=== PATIENT | male | born 1960 | race African-American/Black ===

== ENCOUNTER 2016-10-26 14:46 | Inpatient (IN) | payer BC, OTHER ==
[~2016-10-26] VITALS: Ht 190.5 cm; Wt 111.3 kg
--- NOTE | ~2016-10-26 | HC ---
[facility] [place] [address] CONSULTATION Name: MAITE JIANG Room #: 506-1 [facility] IN M.R.#: [id number] Admission: 10/26/16 Attend Phys: Alexei Saunders MD Discharge: 11/04/16 Date of : 56 Report #: [id number] THIS REPORT FOR: //name// CC: Alexei Coburn DATE OF SERVICE: 10/29/2016 NEUROBEHAVIORAL STATUS EXAM ATTENDING PHYSICIAN: Alexei Saunders M.D. ORE CRUSHER: Michael Sharif, PhD CLINICAL PRESENTATION: The patient is a 56-year-old -Croatian male admitted to the rehabilitation unit at [facility] for comprehensive inpatient rehabilitation program. He was initially admitted for acute medical treatment for respiratory arrest. The patient had acute respiratory failure that was complicated by 2 code blues on 10/18/2016, that required intubation. Acute renal insufficiency with acute tubular necrosis along with severe cardiomyopathy was diagnosed. The patient is severely hard of hearing. A previous stroke in 2007 is also reported. A complete description of his diagnoses on admission includes medical complexity with generalized debilitation, acute on chronic systolic heart failure, severe cardiomyopathy with an ejection fraction of 15% with global hypokinesis and dilated cardiomyopathy, acute respiratory failure, longstanding refractory hypertension, multiple premature ventricular contractions, acute renal insufficiency superimposed on chronic kidney disease, gastric ulcers per EGD, code blue times 2 and premorbid deafness. A complete description of his medical condition and history along with medications can be found in his medical record. Neuropsychological consultation was requested to provide assistance in the assessment of cognitive and emotional status and to provide recommendations and services. Prior to this most recent medical event, he was living with a female belt cleaner. He has three children. 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 He is a high school graduate with a 2-year degree at [employer], [place]. The patient does not have a prior history of treatment for depression or anxiety. TECHNIQUES UTILIZED: Clinical interview, review of medical records, staff consultation and behavioral observation, mini mental status exams/2 standard version (subtest), family interview with daughter and mother. EXAMINATION FINDINGS: The patient was alert and cooperative with the assessment. However, severe hearing deficits interfered with administration of [facility] [address] [place] [address] CONSULTATION Name: MAITE JIANG Room #: 506-1 [facility] IN [facility].#: [id number] Admission: 10/26/16 Attend Phys: Alexei Saunders MD Discharge: 11/04/16 Date of : 56 Report #: [id number] an assessment. His daughter did not indicate the patient's cognitive functioning to be different at this time then his premorbid level of ability. However, his mother does indicate that decreased comprehension appears noted. The patient denies subjective anxiety or depression. However, his self-disclosure of emotional state is somewhat inconsistent. He indicated increased feelings of anxiety and depression during the interview. However, with his daughter present denied symptoms of emotional distress. Appetite is reported as poor. He is lacking insight into cognitive deficits. His performance on mental status exam suggests impairment in immediate memory, high level thought organization, planning and problem solving. He was unable to copy a simple geometric design. The patient was able to draw a clock and place numbers within the clock, but unable to accurately set the time accurately. Decreased comprehension is suggested. Naming is within normal limits. He could read and follow a single command. DIAGNOSTIC IMPRESSION: Neurocognitive disorder, extent to be determined, without behavior disorder -- likely in the moderate range. Unspecified anxiety disorder. RECOMMENDATIONS: The patient may benefit from the use of an antidepressant medication. His appetite is described as less. Use of medication such as Remeron if medically appropriate, may help with stimulation of appetite and sleep. Encouragement to eat is likely necessary. He will require assistance in the management of medication and nutritional needs upon discharge. A followup neuropsychological assessment that is includes a hearing software packaging engineer will be necessary to clarify the severity of cognitive deficits. Thank you very much for allowing me to provide the consultation on this patient. <ELECTRONICALLY SIGNED> By: Michael Sharif, PhD 11/05/16 1530 1608 06 Michael Sharif, PhD /nt
--- NOTE | ~2016-10-26 | H ---
[facility] [place] [address] HISTORY AND PHYSICAL Name: MAITE JIANG Room #: 506-1 ADM IN M.R.#: [id number] Admission: 10/26/16 Attend Phys: Alexei Saunders MD Discharge: Date of : 56 Report #: [id number] THIS REPORT FOR: //name// CC: Alexei Coburn DATE OF SERVICE: 10/27/2016 HISTORY OF PRESENT ILLNESS: The patient is a 56-year-old male who originally admitted to [facility] with respiratory arrest. He was noted to have acute respiratory failure. His course was complicated by code blue x 2 on 10/18/2016 with intubation. He had cardiogenic shock, which improved. He had acute renal insufficiency with acute tubular necrosis. He has noted severe cardiomyopathy with severe global hypokinesis with dilated cardiomyopathy, ejection fraction of 15%. He was noted to have aspiration pneumonia post-code. He also was diagnosed with gastric ulcers with H. pylori positive per EGD 10/14/2016. He was noted to have significant generalized weakness and debilitation. I am uncertain if he sustained any type of hypoxic event or hypoxic encephalopathy post the code blues, but he would be further evaluated while on rehabilitation. He has been admitted for acute in-hospital inpatient rehabilitation. PAST MEDICAL HISTORY: Includes hypertension, hard of hearing/deaf (signs), stroke in 2007. MEDICATIONS: Please see the full medication listing. ALLERGIES: No known drug allergies. HABITS: No history of tobacco or alcohol abuse. SOCIAL HISTORY: Lives in a house with his who is apparently working premorbidly. Both the patient and spouse are noted to be deaf, although the patient is able to read lips quite well. Mother is involved who does hear. The patient premorbidly was independent without gait aids, independent with ADLs. They live in a house apparently a couple of steps with 12 steps down to the basement and laundry. REVIEW OF SYSTEMS: He did not offer any current complaints of chest pain, shortness of breath, abdominal discomfort. No focal extremity pain complaints. Did not complain of any headache, bowel or bladder changes. PHYSICAL EXAMINATION: GENERAL: He is a 56-year-old tall male, 6 feet 3 inches, no obvious distress. VITAL SIGNS: Last recorded temperature 98.5, pulse 84, respirations 20, blood [address] [address] HISTORY AND PHYSICAL Name: MAITE JIANG Room #: 506-1 [facility] IN .R.#: [id number] Admission: 10/26/16 Attend Phys: Alexei Saunders MD Discharge: Date of : 56 Report #: [id number] pressure 105/63. HEENT: Facies are symmetric. EOMs appeared to be intact. CHEST: Some mild decreased breath sounds. CARDIOVASCULAR: Sounded regular rate and rhythm. ABDOMEN: Somewhat obese, bowel sounds positive, nontender. GENITOURINARY AND RECTAL: Deferred. NEUROLOGIC: He has functional range of motion of both upper extremities with strength grade 4- to 3+/5. DTRs are trace to 1. In his lower extremities, there is no focal calf swelling, functional range of motion with strength a grade 3-3+/5. DTRs are trace to 1. He has been contact guard for basic sit to stand transfers and is starting to ambulate a short distance. ASSESSMENT: A 56-year-old male with the following problem list: 1. Medical complexity with generalized debilitation. 2. Acute on chronic systolic heart failure. 3. Severe cardiomyopathy with an ejection fraction of 15% with severe global hypokinesis, dilated cardiomyopathy. 4. Acute respiratory failure with healthcare-associated pneumonia. He is continuing on nasal prong O2, currently on 3 liters. 5. Longstanding refractory hypertension. 6. Multiple premature ventricular contractions. 7. Acute renal insufficiency superimposed on chronic kidney disease. Creatinine still elevated and is actually noted to be 4.0 today. 8. Gastric ulcers per EGD. Helicobacter pylori positive. 9. Code blue x 2 on 10/18/2016. 10. Premorbidly deaf. PLAN: The patient is admitted for acute in-hospital inpatient rehabilitation. Nephrology is involved noting that his creatinine is up again today. From a post-admission physician evaluation perspective, there are no relevant changes since the preadmission screening. Please see the above review of prior and current medical and functional conditions and comorbidities. Please see the patient's prior and current functional status. As far as risk of complications, he has multiple medical comorbidities as noted above. Initial plan of care involves the interdisciplinary acute inpatient rehabilitation program with the goal of maximizing his functional independence, so he can hopefully return back to his prior living situation. Prognosis is reasonably good with estimated length of stay probably fairly short overall, but he does have a number of significant medical comorbidities that are being monitored by the multiple performance test consultant physicians. Potential barriers would include the multiple medical comorbidities and decreased functional status. We will try to have speech therapy assess cognition as well as they can as well. The patient appears [facility] [address] [place] [address] HISTORY AND PHYSICAL Name: MAITE JIANG Room #: 506-1 ADM IN M.R.#: [id number] Admission: 10/26/16 Attend Phys: Alexei Saunders MD Discharge: Date of : 56 Report #: [id number] motivated and we will be working with him to maximize his functional independence in therapies. <ELECTRONICALLY SIGNED> By: Alexei Saunders MD 11/01/16 1518 1000 1042 Alexei Saunders MD /nt
--- NOTE | ~2016-10-26 | EKG ---
[address] [address] ELECTROCARDIOGRAM REPORT Name: ALYSSAMAITE BOOTHE Room #: 506-1 ADM IN M.R.#: [id number] Admission: 10/26/16 Attend Phys: Alexei Saunders MD Discharge: Date of : 56 Report #: [id number] THIS REPORT FOR: //name// [facility] Test Date: 2016-10-31 Test Time: 10:55:01 Pat Name: MAITE JIANG Department: Room: 506 Gender: M Coatings Inspector: Danielle DELATORRE : 1960 Requested By: Ravi Koch Order Number: [id number] MD: Satya Boyd Measurements Intervals [place] Rate: 77 P: 27 [place]: 162 QRS: -27 QRSD: 190 T: 50 QT: 483 QTc: 547 Interpretive Statements Sinus rhythm Ventricular bigeminy IVCD, consider atypical LBBB Compared to ECG 10/18/2016 08:25:23 Sinus tachycardia no longer present Atrial abnormality no longer present Electronically Signed On 10-31-2016 18:03:33 CDT by Satya Boyd [email or web address] <ELECTRONICALLY SIGNED> By: Satya Boyd MD 10/31/16 1803 1055 1055 Satya Boyd MD /EPI
--- NOTE | ~2016-10-26 | PLAN ---
[facility] [place] [address] REHAB UNIT PLAN OF CARE Name: MAITE JIANG Room #: 506-1 ADM IN M.R.#: [id number] Admission: 10/26/16 Attend Phys: Alexei Saunders MD Discharge: Date of : 56 Report #: [id number] THIS REPORT FOR: //name// CC: Alexei Coburn HISTORY: The patient's temperature today is 36.9, pulse 71, respirations 18 and blood pressure is 133/76. Transfers are standby assistance. Gait standby assistance to 110 feet with a front-wheeled walker. In occupational therapy, upper body dressing is supervision, with lower body min assist. In speech therapy, he has zlstmnqc-vq-ninfcb comprehensive deficits. He is on a mechanical soft with thin liquids. ASSESSMENT: 1. Medical complexity with generalized debilitation. 2. Kfndw-wo-kwdyjau systolic heart failure. 3. Severe cardiomyopathy with an ejection fraction of 15%, with severe global hypokinesis and dilated cardiomyopathy. 4. Acute respiratory failure with healthcare-associated pneumonia. He is on nasal prong O2, currently on 3 liters. 5. Long-standing refractory hypertension. 6. Multiple premature ventricular contractions. 7. Acute renal insufficiency superimposed on chronic kidney disease. 8. Gastric ulcers per EGD. Helicobacter pylori positive. 9. Code Blue times 2 on 10/18/2016. 10. Premorbid deafness or decreased hearing. PLAN: The overall plan of care is based on the preadmission screen, post-admission physician evaluation and information garnered from therapy assessments. 1. Estimated length of stay should be fairly short, probably 10 days to 2 weeks. 2. Medical prognosis is reasonably good. 3. Anticipated interventions includes the interdisciplinary acute inpatient rehabilitation program with PT, OT and speech working with him, rehab nursing assisting regarding medication management, skin care prophylaxis, bowel and bladder issues and nursing education. Case management is involved as well as the multiple loans consultant physicians. 4. Anticipated functional outcomes would be for the patient to become modified independent with transfers, mobility and ADLs and improvement in cognition so that he can return back to the home setting. 5. Discharge destination, he lives with his . 6. Expected therapy by discipline includes PT, OT and speech 1 hour per day [address] [address] REHAB UNIT PLAN OF CARE Name: MAITE JIANG Room #: 506-1 ADM IN [facility]#: [id number] Admission: 10/26/16 Attend Phys: Alexei Saunders MD Discharge: Date of : 56 Report #: [id number] each 5 days a week throughout the duration of the acute inpatient rehabilitation stay. <ELECTRONICALLY SIGNED> By: Alexei Saunders MD 11/01/16 1518 1109 1528 Alexei Saunders MD /nt
[~2016-10-26 14:46] MED LIST: ALLOPURINOL 30300 M2 PO; AMLODIPINE BESY10 MG PO; ASPIR 8181 MG PO; CARVEDILOL12.5 MG PO; COREG25 MG PO; COZAAR 50 MG TA50 M2 PO; DEMADEX10 MG PO; FISH OIL 1,0001 EAC5; LISINOPRIL40 MG PO
[2016-10-26] MEDS ORDERED: ALDACTONE25 MG PO (16:11)
[2016-10-26] MEDS ORDERED: ELIQUIS2.5 MG PO (16:11)
[2016-10-26] MEDS ORDERED: DEXTROSE 5025 GM/SYR IV PUSH (16:11)
[2016-10-26] MEDS ORDERED: DUONEB 2.5-0.5 M3 ML INH (16:11)
[2016-10-26] MEDS ORDERED: TYLENOL325 MG PO (16:11)
[2016-10-26] MEDS ORDERED: PACERONE 200 M200 M1 PO (16:11)
[2016-10-26] MEDS ORDERED: LIPITOR 20 MG T20 M1 PO (16:11)
[2016-10-26] MEDS ORDERED: GLUTOSE GEL 1515 G1 PO (16:11)
[2016-10-26] MEDS ORDERED: GLUCOSE4 GM PO (16:11)
[2016-10-26] MEDS ORDERED: FEVERALL650 MG RECTAL (16:11)
[2016-10-26 17:00] VITALS: BP 97/56
[2016-10-27 05:24] VITALS: BP 103/67
[2016-10-27 05:27] LABS: HEMATOCRIT 27.6 % (42.0-52.0); HEMOGLOBIN 9.3 gm/dL (14.0-18.0); MCH 28.3 pg (26.0-34.0); MCHC 33.8 g/dL (28.0-37.0); MCV 83.7 fL (80.0-100.0); RBC 3.3 mil/uL (4.50-6.00); RDW 15.4 % (10.5-14.5); WBC 18.9 thou/uL (4.0-11.0)
[2016-10-27 05:42] LABS: ALBUMIN 1.5 g/dL (3.4-5.0); CALCIUM 8.4 mg/dL (8.5-10.1); PHOSPHORUS 4.3 mg/dL (2.5-4.9); POTASSIUM 3.5 mmol/L (3.5-5.1)
[2016-10-27 08:00] VITALS: BP 104/71
[2016-10-27 14:45] VITALS: BP 104/71
[2016-10-27 17:23] LABS: URINE BILIRUBIN NEGATIVE (Negative); URINE BLOOD 2+ (Negative); URINE COLOR YELLOW; URINE GLUCOSE-RANDOM* NEGATIVE (Negative); URINE KETONES NEGATIVE (Negative); URINE NITRITE NEGATIVE (Negative); URINE PROTEIN (DIPSTICK) 1+ (Negative); URINE UROBILINOGEN 0.2 E.U./dl (0.2-1.0)
[2016-10-27 17:32] LABS: BACTERIA 1-9 Few /HPF (None Seen); CASTS None Seen /LPF (None Seen); CRYSTALS None Seen /LPF (None Seen); SQUAMOUS None Seen /LPF (0-3); URINE RBC 0-2 Rare /HPF (0-2); URINE WBC None Seen /HPF (0-5)
[2016-10-28 03:33] VITALS: BP 110/64
[2016-10-28 06:12] LABS: ALBUMIN 1.6 g/dL (3.4-5.0); CALCIUM 8.9 mg/dL (8.5-10.1); CREATININE 4.2 mg/dL (0.7-1.3); PHOSPHORUS 4.8 mg/dL (2.5-4.9); POTASSIUM 3.8 mmol/L (3.5-5.1)
[2016-10-28 08:00] VITALS: BP 109/63
[2016-10-28 15:35] VITALS: BP 100/61
[2016-10-28 20:45] VITALS: BP 106/69
[2016-10-29 04:56] VITALS: BP 111/74
[2016-10-29 04:58] LABS: ALBUMIN 1.6 g/dL (3.4-5.0); CALCIUM 8.8 mg/dL (8.5-10.1); CREATININE 4.4 mg/dL (0.7-1.3); PHOSPHORUS 4.9 mg/dL (2.5-4.9); POTASSIUM 3.9 mmol/L (3.5-5.1)
[2016-10-29 16:00] VITALS: BP 116/64
[2016-10-29 20:30] VITALS: BP 99/63
[2016-10-30 03:40] VITALS: BP 114/57
[2016-10-30 04:57] LABS: ALBUMIN 1.4 g/dL (3.4-5.0); CALCIUM 8.3 mg/dL (8.5-10.1); CREATININE 4.2 mg/dL (0.7-1.3); PHOSPHORUS 4.8 mg/dL (2.5-4.9); POTASSIUM 3.9 mmol/L (3.5-5.1)
[2016-10-30 07:52] VITALS: BP 108/61
[2016-10-30 16:28] VITALS: BP 113/77
[2016-10-30 17:10] VITALS: BP 113/83
[2016-10-30 21:02] VITALS: BP 123/81
[2016-10-31 04:47] VITALS: BP 120/58
[2016-10-31 06:14] LABS: ALBUMIN 1.4 g/dL (3.4-5.0); CALCIUM 8.3 mg/dL (8.5-10.1); CREATININE 4.3 mg/dL (0.7-1.3); PHOSPHORUS 4.8 mg/dL (2.5-4.9); POTASSIUM 3.9 mmol/L (3.5-5.1)
[2016-10-31 16:00] VITALS: BP 101/63
[2016-10-31 21:04] VITALS: BP 127/63
[2016-11-01 05:25] VITALS: BP 112/70
[2016-11-01 06:09] LABS: HEMATOCRIT 26.3 % (42.0-52.0); HEMOGLOBIN 8.8 gm/dL (14.0-18.0); MCH 28.1 pg (26.0-34.0); MCHC 33.6 g/dL (28.0-37.0); MCV 83.6 fL (80.0-100.0); PLATELET COUNT 361 thou/uL (150-400); RBC 3.15 mil/uL (4.50-6.00); RDW 15.7 % (10.5-14.5)
[2016-11-01 06:10] LABS: MANUAL DIFF YES
[2016-11-01 06:30] LABS: ALBUMIN 1.5 g/dL (3.4-5.0); CALCIUM 8.5 mg/dL (8.5-10.1); CREATININE 4.2 mg/dL (0.7-1.3); POTASSIUM 3.8 mmol/L (3.5-5.1); TOTAL BILIRUBIN 1.1 mg/dL (<0.1-1.0); TOTAL PROTEIN 6.9 g/dL (6.4-8.2)
[2016-11-01 07:33] LABS: ABSOLUTE NEUTROPHILS 7.9 thou/uL (1.4-8.2); ATYPICAL LYMPHS 1 %; TOTAL CELL COUNT 100
[2016-11-01 07:34] LABS: ANISOCYTOSIS 1+; POLYCHROMASIA OCCASIONAL
[2016-11-01 16:00] VITALS: BP 97/61
[2016-11-02 05:57] VITALS: BP 121/79
[2016-11-02 06:43] LABS: CALCIUM 8.3 mg/dL (8.5-10.1); CREATININE 4.3 mg/dL (0.7-1.3); POTASSIUM 3.7 mmol/L (3.5-5.1)
[2016-11-02 15:37] VITALS: BP 101/73
[2016-11-03 06:08] VITALS: BP 105/72
[2016-11-03 06:27] LABS: ALBUMIN 1.7 g/dL (3.4-5.0); CALCIUM 8.6 mg/dL (8.5-10.1); CREATININE 4.3 mg/dL (0.7-1.3); MAGNESIUM 1.7 mg/dL (1.8-2.4); PHOSPHORUS 4.6 mg/dL (2.5-4.9); POTASSIUM 4.1 mmol/L (3.5-5.1)
[2016-11-03 15:07] VITALS: BP 129/66
[2016-11-03 16:00] VITALS: BP 93/65
[2016-11-04 02:59] VITALS: BP 138/95
[2016-11-04 03:27] LABS: ABSOLUTE NEUTROPHILS 5.1 thou/uL (1.4-8.2); EOSINOPHILS 9.7 % (0.0-3.0); HEMATOCRIT 27.8 % (42.0-52.0); HEMOGLOBIN 9.6 gm/dL (14.0-18.0); LYMPHOCYTES 20.4 % (24.0-44.0); MCH 28.3 pg (26.0-34.0); MCHC 34.4 g/dL (28.0-37.0); MCV 82.1 fL (80.0-100.0); MONOCYTES 8.5 % (1.0-8.0); PLATELET COUNT 387 thou/uL (150-400); POLYS 60.4 % (36.0-66.0); RBC 3.39 mil/uL (4.50-6.00); RDW 15.8 % (10.5-14.5); WBC 8.5 thou/uL (4.0-11.0)
[2016-11-04 03:30] LABS: MANUAL DIFF NO
[2016-11-04 03:37] LABS: CALCIUM 8.6 mg/dL (8.5-10.1); CREATININE 4.1 mg/dL (0.7-1.3); PHOSPHORUS 4.6 mg/dL (2.5-4.9); POTASSIUM 3.7 mmol/L (3.5-5.1)
[2016-11-04 07:50] VITALS: BP 124/74
[2016-11-04] MEDS ORDERED: CORLANOR5 MG PO (08:58)
[2016-11-04] MEDS ORDERED: PANTOPRAZOLE SO40 M1 PO (08:59)
[2016-11-04 09:19] VITALS: BP 129/66
[2016-11-04 09:31] VITALS: BP 129/66
[2016-11-04 10:08] VITALS: BP 129/66
== END 2016-11-04 14:25 | disposition home health service (06) | DRG 91 ==
PROVIDERS: Hospitalist; Internal Medicine Nephrology; Nurse Practitioner; Physical Medicine & Rehabilitation; Specialist
DX: G93.1 Anoxic brain damage, not elsewhere classified (principal); I50.23 Acute on chronic systolic (congestive) heart failure; J96.00 Acute respiratory failure, unspecified whether with hypoxia or hypercapnia; N17.0 Acute kidney failure with tubular necrosis; R57.0 Cardiogenic shock; E43 Unspecified severe protein-calorie malnutrition; J15.1 Pneumonia due to Pseudomonas; I42.0 Dilated cardiomyopathy; I13.0 Hypertensive heart and chronic kidney disease with heart failure and stage 1 through stage 4 chronic kidney disease, or unspecified chronic kidney disease; I82.621 Acute embolism and thrombosis of deep veins of right upper extremity; R53.81 Other malaise; I49.3 Ventricular premature depolarization; N18.9 Chronic kidney disease, unspecified; K25.9 Gastric ulcer, unspecified as acute or chronic, without hemorrhage or perforation; E66.9 Obesity, unspecified; F32.9 Major depressive disorder, single episode, unspecified; I95.9 Hypotension, unspecified; E78.5 Hyperlipidemia, unspecified; I49.9 Cardiac arrhythmia, unspecified; D72.829 Elevated white blood cell count, unspecified; S30.1XXA Contusion of abdominal wall, initial encounter; X58.XXXA Exposure to other specified factors, initial encounter; Y93.89 Activity, other specified; Y92.89 Other specified places as the place of occurrence of the external cause; Z86.73 Personal history of transient ischemic attack (TIA), and cerebral infarction without residual deficits; Z68.30 Body mass index [BMI] 30.0-30.9, adult; Y99.8 Other external cause status; Z79.899 Other long term (current) drug therapy; Z82.49 Family history of ischemic heart disease and other diseases of the circulatory system
CPT/HCPCS: 10112

== ENCOUNTER 2017-01-15 01:28 | Inpatient (IN) | payer BC, OTHER ==
[~2017-01-15] VITALS: Ht 188 cm; Wt 91.5 kg
[2017-01-15] VITALS (68 sets, daily range): BP systolic 52–176; BP diastolic 40–123
--- NOTE | ~2017-01-15 | HC ---
[facility] [place] [address] CONSULTATION Name: MAITE JIANG Room #: 239-P ADM IN M.R.#: [id number] Admission: 01/15/17 Attend Phys: Austin Hadley DO Discharge: Date of : 56 Report #: [id number] THIS REPORT FOR: //name// CC: Austin Schreiber PULMONARY CONSULTATION REFERRAL PHYSICIAN: Dr. Hadley. REASON FOR REFERRAL: Acute respiratory failure. HISTORY OF PRESENT ILLNESS: The patient is a 56-year-old male who was brought to the Emergency Room being unresponsive. The patient was subsequently intubated. A pulmonary consultation was requested. The patient has known severe nonischemic cardiomyopathy. Previous echocardiogram showed ejection fraction of 15%. He has been followed by Cardiology. He was a cardiac arrest. According to the records, the patient was driven by private vehicle. When he arrived in the ER, the patient was found to be unresponsive. He was then taken to the ER, subsequently intubated. Portable chest x-ray following intubation revealed bilateral cardiogenic pulmonary edema. This morning, he is more awake. Chest x-ray showed improvement in pulmonary edema. PAST MEDICAL HISTORY: Notable for severe nonischemic cardiomyopathy, ejection fraction 15-20% on echocardiogram performed on 10/12/2016, cardiac catheterization performed on 10/31/2016 shows normal coronary arteries, hypertension, possible hypertensive cardiomyopathy, past history of CVA, history of medical noncompliance, gastric ulcers, DVT involving his right upper extremity, had been on Eliquis, hearing impairment. PAST SURGICAL HISTORY: As mentioned above. ALLERGIES: None to medications. MEDICATIONS: List reviewed. FAMILY HISTORY: Noncontributory. SOCIAL HISTORY: He is . He is deaf along with his . They have children, 1 child has no hearing impairment. He denies any tobacco or alcohol [facility] [address] [place] [address] CONSULTATION Name: MAITE JIANG Room #: 239-P [facility] IN ..#: [id number] Admission: 01/15/17 Attend Phys: Austin Hadley DO Discharge: Date of : 56 Report #: [id number]. REVIEW OF SYSTEMS: As mentioned above, otherwise is deferred as the patient is intubated. PHYSICAL EXAMINATION: GENERAL: He is presently alert, in no distress. VITAL SIGNS: Temperature is 98 degrees Fahrenheit, pulse is 70, respiratory rate is 14, blood pressure is 114/84 mmHg, saturation is 98%. HEENT: Normocephalic, atraumatic. NECK: Supple, without any lymphadenopathy or thyromegaly. CHEST: Breath sounds are fair. A few scattered crackles in the bases. No wheezes. CARDIOVASCULAR: Heart sounds are distant. No obvious murmurs or gallop. Pulses are 2+/4+ bilaterally. ABDOMEN: Soft, nontender, no organomegaly or masses felt. GENITOURINARY: Deferred. RECTAL: Deferred. EXTREMITIES: There is no edema, cyanosis or clubbing. LABORATORY DATA: Portable chest x-ray as mentioned above showing bilateral pulmonary edema. ET tube is approximately 2 cm above the rhonda. A followup chest x-ray shows improvement in pulmonary edema. Sodium 140, potassium 3.7, chloride 100, CO2 is 27, BUN is 25, creatinine is 2.3, glucose 206. Liver function profile is mildly elevated, alkaline phosphatase is 166. Troponin is 0.2. Arterial blood gas on admission revealed pH 7.14, PCO2 69, pO2 81 on FiO2 100%. Most recent arterial blood gas revealed pH 7.38, PCO2 64, pO2 169 on FiO2 of 80%. IMPRESSION: 1. Acute hypoxic hypercapneic respiratory failure in this 56-year-old white male with severe nonischemic cardiomyopathy. Chest x-ray shows dense bilateral pulmonary edema. 2. Acute on chronic systolic heart failure is suspected. Pneumonia is felt to be less likely. 3. Severe nonischemic cardiomyopathy with an estimated ejection fraction of 15-20%, cardiac catheterization performed in October 2016 shows normal coronary arteries. The patient is scheduled to have an implantable cardioverter-defibrillator implantation in the near future. 4. Acute kidney injury/chronic kidney disease. 5. Deep vein thrombosis involving his upper extremities, had been on anticoagulation. 6. Past history of cerebrovascular accident. 7. History of gastric ulcers. 8[place] [address] CONSULTATION Name: MAITE JIANG Room #: 239-P ADM IN M.R.#: [id number] Admission: 01/15/17 Attend Phys: Austin Hadley DO Discharge: Date of : 56 Report #: [id number] 9. History of medical noncompliance. 10. Hearing impairment. RECOMMENDATIONS: We will continue mechanical ventilation, continue diuresis as you are. We will consider weaning trials once clinically much improved. He will need to be followed closely regarding his renal function. Wean FiO2 for saturation 90%. Thank you for this consultation. <ELECTRONICALLY SIGNED> By: Grady Schreiber MD 01/16/17 1240 1338 2048 Grady Schreiber MD /nt
--- NOTE | ~2017-01-15 | EKG ---
[address] [employer] [address] ELECTROCARDIOGRAM REPORT Name: MAITE JIANG Amber Room #: 206-P ADM IN M.R.#: [id number] Admission: 01/15/17 Attend Phys: Austin Hadley DO Discharge: Date of : 56 Report #: [id number] THIS REPORT FOR: //name// [facility] Test Date: 2017-01-16 Test Time: 06:26:52 Pat Name: MAITE JIANG Department: Room: 206 Gender: M Instrument Technician: FARRUKH : 1960 Requested By: Satya Boyd Order Number: [id number] MD: Bernabe Solares Measurements Intervals [place] Rate: 75 P: 10 [place]: 177 QRS: -21 QRSD: 197 T: 141 QT: 509 QTc: 569 Interpretive Statements Sinus rhythm Ventricular premature complex Left bundle branch block Compared to ECG 10/31/2016 10:55:01 Tachycardias is no longer present Electronically Signed On 01-17-2017 12:59:09 CDT by Bernabe Solares [email or web address] <ELECTRONICALLY SIGNED> By: eBrnabe Solares MD, [facility] 01/17/17 1259 5 5 Bernabe Solares MD, [facility] /EPI
--- NOTE | ~2017-01-15 | HC ---
[facility] [place] [address] CONSULTATION Name: MAITE JIANG Amber Room #: 206-P ADM IN M.R.#: [id number] Admission: 01/15/17 Attend Phys: Austin Hadley DO Discharge: Date of : 56 Report #: [id number] THIS REPORT FOR: //name// CC: Austin Schreiber DATE OF SERVICE: 01/16/2017 NEPHROLOGY CONSULTATION REASON FOR CONSULTATION: Chronic kidney disease and electrolyte abnormalities. HISTORY OF PRESENT ILLNESS: This is a 56-year-old male who has severe chronic cardiomyopathy. He also has longstanding hypertension. He has been known for years to have some chronic kidney disease that started about stage III and now is running more in the stage IV range. He has actually been followed intermittently over the years by couple of members of our group in the office. Most recently, he was in [facility] in September and October of 2016. He had problems with heart failure at that time. He also had a couple of arrests. He developed cardiogenic shock. We saw him at that time with acute kidney injury on top of his chronic kidney disease. Most of that was cardiorenal type syndrome. His admitting creatinine at that time was 1.8, it stay between that in the middle 2 range for much of this hospitalization, but with further diuresis bonnie to 4.1 by the time of discharge. He has actually been seen back in the office on 12/06/[address] Taylor. At that time, his creatinine level was 2.3, which was good for him. He is maintained on chronic diuretics. Most recently, this has been torsemide at home. He presented to the Emergency Room after having a single episode. That actually occurred while he was coming in to the hospital in a private car. That was necessitated because he was having worsening dyspnea at home. He was intubated in the Emergency Room. He was extubated earlier this afternoon. His creatinine level was 2.3 on presentation and 2.3 again today. He has undergone some diuresis of 3.1 liters recorded over the past 24 hours. He has also developed some hypokalemia with the potassium level down to ____. <ELECTRONICALLY SIGNED> By: Ravi Taylor MD 01/18/17 1127 1739 2333 Mac Gutierrez MD /nt
--- NOTE | ~2017-01-15 | HC ---
[facility] [place] [address] CONSULTATION Name: MAITE JIANG Amber Room #: 206-P [facility] IN M.R.#: [id number] Admission: 01/15/17 Attend Phys: Austin Hadley DO Discharge: Date of : 56 Report #: [id number] THIS REPORT FOR: //name// CC: Austin Schreiber REASON FOR CONSULTATION: Acute on chronic LV systolic heart failure. HISTORY OF PRESENT ILLNESS: The patient is a 56-year-old male with history of a nonischemic cardiomyopathy who follows with Dr. Koch. He was hospitalized in September with congestive heart failure, respiratory failure requiring intubation. At that time, a heart catheterization showed normal coronary arteries with a cath performed on October 31. He also had an echo on 10/12/2016 demonstrating an EF of 15-20%. Last night the patient presented to the ER with progressive worsening, exertional dyspnea and was intubated in the Emergency Room. In the ICU overnight he was started on IV diuretics and had some periods of hypotension requiring Levophed but this is currently off. The patient is currently intubated, but alert and following commands. REVIEW OF SYSTEMS: Unable to obtain due to patient being intubated. PAST MEDICAL HISTORY: 1. Nonischemic cardiomyopathy, EF of 15-20% based on echo on 10/12/2016. 2. Cardiac catheterization, 10/31/2016 demonstrate normal course. 3. Hypertension. 4. Possible hypertensive cardiomyopathy. 5. Prior cerebrovascular accident. 6. Noncompliance. 7. Gastric ulcers during the last hospitalization status post EGD. 8. Right upper extremity DVT diagnosed during last hospitalization that progressed all the way to the subclavian vein, discharged on Eliquis therapy. 9. The patient's hearing is impaired. SOCIAL HISTORY: No tobacco. FAMILY HISTORY: Negative for coronary artery disease. ALLERGIES: None. MEDICATIONS: Reviewed. PHYSICAL EXAMINATION: VITAL SIGNS: Afebrile, pulse 70, respiration 14, blood pressure 114/84, sats 98%. GENERAL: The patient is intubated and eyes are open and he tracks. [facility] [address] [place] [address] CONSULTATION Name: MAITE JIANG Room #: 206-P [facility] IN .R.#: [id number] Admission: 01/15/17 Attend Phys: Austin Hadley DO Discharge: Date of : 56 Report #: [id number] HEENT: Oropharynx is intubated. Sclerae are anicteric. NECK: Supple, with no thyromegaly. HEART: Regular rate and rhythm. There is elevated JVP. LUNGS: With some coarse crackles at the bases. ABDOMEN: Soft, nontender, nondistended with no hepatosplenomegaly. EXTREMITIES: There is no clubbing, cyanosis, edema. His extremities are cool to touch. His pulses are 1+ throughout. NEUROLOGIC: The patient is tracking and following commands. LABORATORY DATA: Troponin is 0.21, pH is 7.3, pCO2 of 46, pO2 169. White count 17.9, hemoglobin 13, platelets 175. INR is 1.1, sodium 140, potassium 3.7, chloride 100, bicarbonate 27, BUN 25, creatinine 2.3. Lactic acid 8.6. AST 32, ALT 28, alkaline phosphatase 166, proBNP 4555, albumin 3.4, serum alcohol level is normal. EKG shows sinus rhythm with a left bundle branch block. His chest x-ray shows evidence of pulmonary edema. His telemetry shows sinus rhythm and sinus tachycardia. There are no arrhythmias noted. ASSESSMENT: 1. Acute on chronic left ventricular systolic heart failure. 2. Nonischemic cardiomyopathy. 3. Hypertension. 4. Medical noncompliance. 5. Acute respiratory failure. 6. Elevated troponin. 7. Acute on chronic renal insufficiency. 8. Leukocytosis. 9. Prior deep venous thrombosis. 10. Gastric ulcers. 11. Prior cerebrovascular accident. 12. Hearing impaired. In summary, the patient is a 56-year-old with a history of a nonischemic cardiomyopathy who presents with acute on chronic left ventricular systolic heart failure requiring intubation. I recommend that we continue with diuretics. I will give him Lasix 120 x 1 now as he has not made much in the ER in overnight. We will hold any antihypertensives currently as he has had some low blood pressures overnight. Hopefully, we can diurese the patient sufficiently to allow for extubation. In terms of his elevated troponins, there is no evidence of ischemia on his EKG and I think this is likely due to his congestive heart failure and renal insufficiency. We will continue to follow. <ELECTRONICALLY SIGNED> By: Satya Boyd MD 01/19/17 1105 [id number] Satya Boyd MD /nt
--- NOTE | ~2017-01-15 | EKG ---
[address] [place] [address] ELECTROCARDIOGRAM REPORT Name: MAITE JIANG Amber Room #: 206-P ADM IN M.R.#: [id number] Admission: 01/15/17 Attend Phys: Austin Hadley DO Discharge: Date of : 56 Report #: [id number] THIS REPORT FOR: //name// [facility] ED Test Date: 2017-01-15 Test Time: 01:26:45 Pat Name: MAITE JIANG Department: Room: 206 Gender: M Advertising Manager: MIGUEL ÁNGEL : 1960 Requested By: Omega Blanco Order Number: [id number] MD: Bernabe Solares Measurements Intervals [place] Rate: 100 P: [place]: QRS: -21 QRSD: 235 T: 112 QT: 473 QTc: 611 Interpretive Statements Wide complex tachycardia, possibly ventricular tachycardia Left bundle branch block morphology Compared to ECG 10/31/2016 10:55:01 Wide complex tachycardia is now present Electronically Signed On 01-17-2017 12:41:47 CDT by Bernabe Solares [email or web address] <ELECTRONICALLY SIGNED> By: Bernabe Solares MD, [facility] 01/17/17 1241 0126 012 Bernabe Solares MD, [facility] /EPI
[~2017-01-15 01:28] MED LIST changes: +ALDACTONE25 MG PO; +CORLANOR5 MG PO; +DEXTROSE 5025 GM/SYR IV PUSH; +DUONEB 2.5-0.5 M3 ML INH; +ELIQUIS2.5 MG PO; +FEVERALL650 MG RECTAL; +GLUCOSE4 GM PO; +GLUTOSE GEL 1515 G1 PO; +LIPITOR 20 MG T20 M1 PO; +PACERONE 200 M200 M1 PO; +PANTOPRAZOLE SO40 M1 PO; +TYLENOL325 MG PO
[2017-01-15 02:13] LABS: HEMATOCRIT 41.1 % (42.0-52.0); MCH 27.4 pg (26.0-34.0); MCHC 31.7 g/dL (28.0-37.0); MCV 86.5 fL (80.0-100.0); PLATELET COUNT 175 thou/uL (150-400); RBC 4.75 mil/uL (4.50-6.00); RDW 16.8 % (10.5-14.5); WBC 17.9 thou/uL (4.0-11.0)
[2017-01-15 02:14] LABS: MANUAL DIFF YES
[2017-01-15 02:16] LABS: APTT 28.4 Seconds (24.5-32.8); INR 1.1
[2017-01-15 02:20] LABS: ANION GAP 13 mmol/L (7-16); BUN 25 mg/dL (7-18); CALCIUM 9.6 mg/dL (8.5-10.1); CHLORIDE 100 mmol/L (98-107); CO2 27 mmol/L (21-32); CREATININE 2.3 mg/dL (0.7-1.3); GLUCOSE 206 mg/dL (74-106); POTASSIUM 3.7 mmol/L (3.5-5.1); SODIUM 140 mmol/L (136-145)
[2017-01-15 02:29] LABS: ACETAMINOPHEN < 2 ug/mL (10-30); ALBUMIN 3.4 g/dL (3.4-5.0); ALKALINE PHOSPHATASE 166 U/L (46-116); SALICYLATE < 2.8 mg/dL (2.8-20.0); SGOT 32 U/L (15-37); SGPT 28 U/L (30-65); TOTAL BILIRUBIN 0.9 mg/dL (<0.1-1.0); TROPONIN-I 0.05 ng/mL (<0.04-0.07)
[2017-01-15 02:32] LABS: ANISOCYTOSIS 1+; LARGE PLATELETS OCCASIONAL; TOTAL CELL COUNT 100
[2017-01-15 02:33] LABS: MICROCYTES 1+
[2017-01-15 02:39] LABS: ABG SAMPLE TYPE ARTERIAL; BE(vivo) -6.6 mmol/L (-2 to +3); HCO3 23.6 mmol/L (22.0-26.0); LACTATE 2.75 mmol/L (0.5-2.0); O2(CT) 18.3 mL/dL (15.0-23.0); O2Hb 91.2 % (92.0-98.0); PO2 81.1 mmHg (80.0-100.0); tCO2 25.7 mmol/L (24.0-30.0)
[2017-01-15 02:40] LABS: PCO2 69.5 mmHg (35.0-45.0); STICK SITE L.RADIAL; TIDAL VOLUME 500 ml; pH 7.149 (7.360-7.450)
[2017-01-15 05:35] LABS: ABG SAMPLE TYPE ARTERIAL; BE(vivo) -0.6 mmol/L (-2 to +3); HCO3 26.4 mmol/L (22.0-26.0); LACTATE 1.74 mmol/L (0.5-2.0); O2(CT) 18.8 mL/dL (15.0-23.0); O2Hb 97.9 % (92.0-98.0); PCO2 53.7 mmHg (35.0-45.0); PO2 146.2 mmHg (80.0-100.0); STICK SITE L.RADIAL; TIDAL VOLUME 600 ml; sO2 98.6 % (92.0-98.0); tCO2 28.1 mmol/L (24.0-30.0)
[2017-01-15 07:59] LABS: ABG SAMPLE TYPE ARTERIAL; BE(vivo) 1.9 mmol/L (-2 to +3); HCO3 27.4 mmol/L (22.0-26.0); LACTATE 1.34 mmol/L (0.5-2.0); O2(CT) 18.8 mL/dL (15.0-23.0); O2Hb 98.2 % (92.0-98.0); PCO2 46.7 mmHg (35.0-45.0); PO2 169.7 mmHg (80.0-100.0); STICK SITE L.RADIAL; TIDAL VOLUME 600 ml; pH 7.387 (7.360-7.450); sO2 99.1 % (92.0-98.0); tCO2 28.9 mmol/L (24.0-30.0)
[2017-01-16] VITALS (36 sets, daily range): BP systolic 104–149; BP diastolic 68–102
[2017-01-16 04:59] LABS: HEMATOCRIT 35.6 % (42.0-52.0); HEMOGLOBIN 11.8 gm/dL (14.0-18.0); MCH 27.2 pg (26.0-34.0); MCV 82.4 fL (80.0-100.0); RBC 4.32 mil/uL (4.50-6.00); RDW 16.8 % (10.5-14.5); WBC 6.7 thou/uL (4.0-11.0)
[2017-01-16 05:26] LABS: CALCIUM 8.8 mg/dL (8.5-10.1); CREATININE 2.3 mg/dL (0.7-1.3)
[2017-01-16 05:29] LABS: POTASSIUM 2.6 mmol/L (3.5-5.1)
[2017-01-16 09:37] LABS: ABG SAMPLE TYPE ARTERIAL; HCO3 27.8 mmol/L (22.0-26.0); O2(CT) 18.3 mL/dL (15.0-23.0); O2Hb 98.1 % (92.0-98.0); PCO2 43.5 mmHg (35.0-45.0); PO2 153.7 mmHg (80.0-100.0); STICK SITE L.RADIAL; pH 7.424 (7.360-7.450); tCO2 29.2 mmol/L (24.0-30.0)
[2017-01-16 09:38] LABS: Pressure Support 6 cm H20
[2017-01-16 12:26] LABS: MAGNESIUM 1.6 mg/dL (1.8-2.4); POTASSIUM 3.1 mmol/L (3.5-5.1)
[2017-01-17] VITALS (16 sets, daily range): BP systolic 82–130; BP diastolic 57–98
[2017-01-17 03:55] LABS: HEMATOCRIT 31.8 % (42.0-52.0); HEMOGLOBIN 10.6 gm/dL (14.0-18.0); MCH 27.9 pg (26.0-34.0); MCHC 33.5 g/dL (28.0-37.0); MCV 83.5 fL (80.0-100.0); RBC 3.81 mil/uL (4.50-6.00); RDW 16.9 % (10.5-14.5); WBC 5.3 thou/uL (4.0-11.0)
[2017-01-17 04:29] LABS: CALCIUM 8.7 mg/dL (8.5-10.1); CREATININE 2.4 mg/dL (0.7-1.3); POTASSIUM 3.9 mmol/L (3.5-5.1)
[2017-01-18 04:18] VITALS: BP 111/77
[2017-01-18 07:25] VITALS: BP 121/86
[2017-01-18 07:51] VITALS: BP 121/84
[2017-01-18 08:30] LABS: CALCIUM 9.8 mg/dL (8.5-10.1); CREATININE 2.2 mg/dL (0.7-1.3); POTASSIUM 3.5 mmol/L (3.5-5.1)
[2017-01-18 11:39] VITALS: BP 119/92
[2017-01-18 15:35] VITALS: BP 119/86
[2017-01-18 19:14] VITALS: BP 105/68
[2017-01-19 02:42] VITALS: BP 113/79
[2017-01-19 02:50] LABS: HEMATOCRIT 32.5 % (42.0-52.0); HEMOGLOBIN 10.6 gm/dL (14.0-18.0); MCH 27.3 pg (26.0-34.0); MCHC 32.6 g/dL (28.0-37.0); MCV 83.6 fL (80.0-100.0); RBC 3.88 mil/uL (4.50-6.00); RDW 16.5 % (10.5-14.5); WBC 4.9 thou/uL (4.0-11.0)
[2017-01-19 03:03] LABS: ALBUMIN 2.8 g/dL (3.4-5.0); CALCIUM 9.5 mg/dL (8.5-10.1); CREATININE 2.1 mg/dL (0.7-1.3); PHOSPHORUS 3.9 mg/dL (2.5-4.9); POTASSIUM 3.3 mmol/L (3.5-5.1)
[2017-01-19 08:02] VITALS: BP 132/95
[2017-01-19 15:16] VITALS: BP 134/98
[2017-01-19 19:21] VITALS: BP 114/69
[2017-01-19 23:43] VITALS: BP 138/95
[2017-01-20 03:55] VITALS: BP 131/78
[2017-01-20 04:24] LABS: ABSOLUTE NEUTROPHILS 2.2 thou/uL (1.4-8.2); BASOPHILS 1.3 % (0.0-2.0); EOSINOPHILS 7.1 % (0.0-3.0); HEMATOCRIT 31.6 % (42.0-52.0); HEMOGLOBIN 10.7 gm/dL (14.0-18.0); LYMPHOCYTES 34.6 % (24.0-44.0); MCHC 33.9 g/dL (28.0-37.0); MCV 82.6 fL (80.0-100.0); MONOCYTES 10.1 % (1.0-8.0); PLATELET COUNT 122 thou/uL (150-400); POLYS 46.9 % (36.0-66.0); RBC 3.83 mil/uL (4.50-6.00); RDW 16.5 % (10.5-14.5); WBC 4.7 thou/uL (4.0-11.0)
[2017-01-20 04:29] LABS: ALBUMIN 2.6 g/dL (3.4-5.0); CALCIUM 9.1 mg/dL (8.5-10.1); CREATININE 2.5 mg/dL (0.7-1.3); MANUAL DIFF NO; PHOSPHORUS 4.4 mg/dL (2.5-4.9); POTASSIUM 3.6 mmol/L (3.5-5.1)
[2017-01-20 07:40] VITALS: BP 136/88
[2017-01-20 09:01] VITALS: BP 136/88
[2017-01-20] MEDS ORDERED: CARVEDILOL6.25 MG PO (10:32)
[2017-01-20] MEDS ORDERED: ACCUPRIL40 MG PO (10:32)
[2017-01-20 11:30] VITALS: BP 136/88
== END 2017-01-20 13:07 | disposition home or self-care (01) | DRG 853 ==
LOC: ER 01:28 → EDBD 02:24 → ICU 02:24 → EROBS 02:24 → ICU 04:18 → 2N 01-17 11:41 → ENTRNSPT 01-20 12:52 → EDTRNSPTSTS 01-20 12:57 → 2N 01-20 13:07
PROVIDERS: Emergency Medicine; Family Medicine; Internal Medicine Nephrology; Internal Medicine Pulmonary Disease; Nurse Practitioner Acute Care; Nurse Practitioner Adult Health
PROC: 5A1945Z Respiratory Ventilation, 24-96 Consecutive Hours (ICD-10-PCS; principal; 2017-01-15)
PROC: 0BH17EZ Insertion of Endotracheal Airway into Trachea, Via Natural or Artificial Opening (ICD-10-PCS; principal; 2017-01-15)
PROC: 02HK3KZ Insertion of Defibrillator Lead into Right Ventricle, Percutaneous Approach (ICD-10-PCS; 2017-01-19)
PROC: 0JH609Z Insertion of Cardiac Resynchronization Defibrillator Pulse Generator into Chest Subcutaneous Tissue and Fascia, Open Approach (ICD-10-PCS; 2017-01-19)
PROC: 02H63KZ Insertion of Defibrillator Lead into Right Atrium, Percutaneous Approach (ICD-10-PCS; 2017-01-19)
PROC: 02HL3KZ Insertion of Defibrillator Lead into Left Ventricle, Percutaneous Approach (ICD-10-PCS; 2017-01-19)
DX: A41.9 Sepsis, unspecified organism (principal); J96.01 Acute respiratory failure with hypoxia; J96.02 Acute respiratory failure with hypercapnia; I50.23 Acute on chronic systolic (congestive) heart failure; N17.9 Acute kidney failure, unspecified; I13.0 Hypertensive heart and chronic kidney disease with heart failure and stage 1 through stage 4 chronic kidney disease, or unspecified chronic kidney disease; E87.0 Hyperosmolality and hypernatremia; I42.8 Other cardiomyopathies; N18.9 Chronic kidney disease, unspecified; M10.9 Gout, unspecified; E11.22 Type 2 diabetes mellitus with diabetic chronic kidney disease; H91.90 Unspecified hearing loss, unspecified ear; K25.9 Gastric ulcer, unspecified as acute or chronic, without hemorrhage or perforation; N18.3 Chronic kidney disease, stage 3 (moderate); E87.6 Hypokalemia; Z86.73 Personal history of transient ischemic attack (TIA), and cerebral infarction without residual deficits; Z79.899 Other long term (current) drug therapy; Z91.14 Patient's other noncompliance with medication regimen; Z79.01 Long term (current) use of anticoagulants
CPT/HCPCS: 10078; 10081; 62110; 62900; 70005

== ENCOUNTER → 2017-02-03 | Outpatient (CLI) | payer BC, OTHER ==
[~2017-02-03] MED LIST changes: +ACCUPRIL40 MG PO; +CARVEDILOL6.25 MG PO
== END ==
LOC: RAD 08:14
DX: J96.00 Acute respiratory failure, unspecified whether with hypoxia or hypercapnia (principal)

== ENCOUNTER 2017-06-27 11:28 | Inpatient (IN) | payer BC, OTHER ==
[~2017-06-27] VITALS: Ht 190.5 cm; Wt 96.7 kg
--- NOTE | ~2017-06-27 | EKG ---
[address] [address] ELECTROCARDIOGRAM REPORT Name: APOLINARMAITE Room #: 211-P [facility].#: [id number] Admission: 06/27/17 Attend Phys: Satya Boyd MD Discharge: Date of : 56 Report #: [id number] THIS REPORT FOR: //name// [facility] Test Date: 2017-06-27 Test Time: 13:17:21 Pat Name: MAITE JIANG Department: Room: 211 P Gender: M Absorption And Adsorption Engineer: YONY : 1960 Requested By: Satya Boyd Order Number: [id number] MD: Bernabe Solares Measurements Intervals [place] Rate: 71 P: 27 ID: 157 QRS: -40 QRSD: 134 T: 115 QT: 440 QTc: 479 Interpretive Statements Atrial-sensed ventricular-paced rhythm No further analysis attempted due to paced rhythm Compared to ECG 03/02/2017 17:49:18 Atrial fibrillation is no longer present biventricular pacing is now noted Electronically Signed On 06-28-2017 8:59:38 HUMAN RESOURCES EXECUTIVE by Bernabe Solares [email or web address] <ELECTRONICALLY SIGNED> By: Bernabe Solares MD, [facility] 06/28/17 0859 1317 1317 Bernabe Solares MD, [facility] /EPI
--- NOTE | ~2017-06-27 | EKG ---
[address] [address] ELECTROCARDIOGRAM REPORT Name: MAITE JIANG Amber Room #: 211-P [facility].#: [id number] Admission: 06/27/17 Attend Phys: Satya Boyd MD Discharge: Date of : 56 Report #: [id number] THIS REPORT FOR: //name// [facility] Test Date: 2017-06-27 Test Time: 11:58:34 Pat Name: MAITE JIANG Department: Room: 211 P Gender: M Examiner Rating Clerk: YONY : 1960 Requested By: Satya Boyd Order Number: [id number] MD: Bernabe Solares Measurements Intervals [place] Rate: 154 P: 132 [place]: 100 QRS: -38 QRSD: 180 T: 155 QT: 333 QTc: 533 Interpretive Statements Atrial fibrillation with a rapid ventricular response Left bundle branch block Compared to ECG 03/02/2017 17:49:18 Wide complex tachycardia is now present Electronically Signed On 06-28-2017 8:58:54 TECHNICAL INSTRUCTOR COURSE DEVELOPER by Bernabe Solares [email or web address] <ELECTRONICALLY SIGNED> By: Bernabe Solares MD, [facility] 06/28/17 0858 1158 1158 Bernabe Solares MD, [facility] /EPI
--- NOTE | ~2017-06-27 | EKG ---
[address] [address] ELECTROCARDIOGRAM REPORT Name: MAITE JIANG Room #: 211-P [facility].#: [id number] Admission: 06/27/17 Attend Phys: Satya Boyd MD Discharge: Date of : 56 Report #: [id number] THIS REPORT FOR: //name// [facility] Test Date: 2017-06-28 Test Time: 11:42:10 Pat Name: MAITE JIANG Department: Room: 211 P Gender: M Transformer Repairer: chantell : 1960 Requested By: Satya Boyd Order Number: [id number] MD: Bernabe Solares Measurements Intervals [place] Rate: 61 P: ND: 48 QRS: -63 QRSD: 186 T: 33 QT: 570 QTc: 575 Interpretive Statements Atrial-ventricular dual-paced rhythm No further analysis attempted due to paced rhythm Compared to ECG 06/27/2017 13:17:21 No significant change was found Electronically Signed On 06-28-2017 17:17:38 JAVA J2EE TECHNICAL LEAD by Bernabe Solares [email or web address] <ELECTRONICALLY SIGNED> By: Bernabe Solares MD, [facility] 06/28/17 1717 1142 1142 Bernabe Solares MD, [facility] /EPI
[~2017-06-27 11:28] MED LIST changes: +CARVEDILOL3.125 MG PO
[2017-06-27 11:50] VITALS: BP 126/84
[2017-06-27] MEDS ORDERED: COREG25 MG PO (12:08)
[2017-06-27] MEDS ORDERED: PROTONIX40 M1 PO (12:10)
[2017-06-27 12:12] LABS: HEMATOCRIT 40.7 % (42.0-52.0); HEMOGLOBIN 13.7 gm/dL (14.0-18.0); MCH 28.6 pg (26.0-34.0); MCHC 33.6 g/dL (28.0-37.0); MCV 85.4 fL (80.0-100.0); RBC 4.77 mil/uL (4.50-6.00); RDW 14.6 % (10.5-14.5); WBC 6.4 thou/uL (4.0-11.0)
[2017-06-27] MEDS ORDERED: DEMADEX20 MG PO (12:12)
[2017-06-27] MEDS ORDERED: COZAAR 25 MG TA25 M1 PO (12:13)
[2017-06-27 12:27] LABS: ALBUMIN 3.7 g/dL (3.4-5.0); CALCIUM 9.1 mg/dL (8.5-10.1); CREATININE 2.3 mg/dL (0.7-1.3); POTASSIUM 3.3 mmol/L (3.5-5.1); TOTAL BILIRUBIN 1.5 mg/dL (<0.1-1.0); TOTAL PROTEIN 7.7 g/dL (6.4-8.2)
[2017-06-27 15:40] VITALS: BP 158/105
[2017-06-27 19:47] VITALS: BP 148/98
[2017-06-27 23:55] VITALS: BP 134/83
[2017-06-28 03:39] LABS: CALCIUM 8.6 mg/dL (8.5-10.1); CREATININE 2.4 mg/dL (0.7-1.3); POTASSIUM 3.5 mmol/L (3.5-5.1)
[2017-06-28 03:45] LABS: ALBUMIN 3.2 g/dL (3.4-5.0); DIRECT BILIRUBIN 0.2 mg/dL (<0.1-0.3); TOTAL BILIRUBIN 1.3 mg/dL (<0.1-1.0); TOTAL PROTEIN 6.6 g/dL (6.4-8.2)
[2017-06-28 03:46] LABS: % SATURATION 18 % (20-39); IRON 34 ug/dL (65-175); TIBC 189 ug/dL (250-450)
[2017-06-28 04:13] VITALS: BP 128/95
[2017-06-28 07:16] VITALS: BP 158/110
[2017-06-28 11:12] VITALS: BP 143/98
[2017-06-28 12:13] LABS: IgG 1514 mg/dL (700-1600)
[2017-06-28 15:37] VITALS: BP 164/113
[2017-06-28 18:11] LABS: HAV IgM AB (ANTI-HAV IgM) Negative (Negative); HEPATITIS B SURFACE AG Negative (Negative); HEPATITIS C VIRUS AB <0.1 (0.0-0.9)
[2017-06-28 20:27] VITALS: BP 167/121
[2017-06-28 23:58] VITALS: BP 158/115
[2017-06-29 04:12] LABS: HEMOGLOBIN 12.3 gm/dL (14.0-18.0); MCH 28.8 pg (26.0-34.0); MCHC 34.2 g/dL (28.0-37.0); MCV 84.2 fL (80.0-100.0); PLATELET COUNT 121 thou/uL (150-400); RBC 4.27 mil/uL (4.50-6.00); RDW 14.5 % (10.5-14.5); WBC 5.2 thou/uL (4.0-11.0)
[2017-06-29 04:18] LABS: CALCIUM 8.8 mg/dL (8.5-10.1); CREATININE 2.1 mg/dL (0.7-1.3); POTASSIUM 3.1 mmol/L (3.5-5.1)
[2017-06-29 04:34] VITALS: BP 158/114
[2017-06-29 08:00] VITALS: BP 165/117
[2017-06-29] MEDS ORDERED: PACERONE 200 M200 M1 PO (08:27)
[2017-06-29 08:29] LABS: ABSOLUTE NEUTROPHILS 2.4 thou/uL (1.4-8.2)
[2017-06-29] MEDS ORDERED: ELIQUIS5 MG PO (08:29)
[2017-06-29 08:30] LABS: LARGE PLATELETS FEW
[2017-06-29] MEDS ORDERED: POTASSIUM20 PO (08:30)
[2017-06-29 10:21] LABS: CREATININE 2.2 mg/dL (0.7-1.3); POTASSIUM 3.7 mmol/L (3.5-5.1)
[2017-06-29 10:37] VITALS: BP 133/102
[2017-06-29 10:38] VITALS: BP 133/102
[2017-06-29 17:12] LABS: CERULOPLASMIN 23.9 mg/dL (16.0-31.0)
[2017-06-30 11:08] LABS: ANA INTERPRETATION Negative (Negative)
== END 2017-06-29 11:17 | disposition home or self-care (01) | DRG 310 ==
LOC: 2N 11:28
PROVIDERS: Internal Medicine Cardiovascular Disease; Nurse Practitioner; Nurse Practitioner Gerontology
DX: I48.91 Unspecified atrial fibrillation (principal); I10 Essential (primary) hypertension; I42.9 Cardiomyopathy, unspecified; I50.9 Heart failure, unspecified; H91.3 Deaf nonspeaking, not elsewhere classified; M10.9 Gout, unspecified; R74.0 Nonspecific elevation of levels of transaminase and lactic acid dehydrogenase [LDH]; K80.20 Calculus of gallbladder without cholecystitis without obstruction; N18.9 Chronic kidney disease, unspecified; Z82.49 Family history of ischemic heart disease and other diseases of the circulatory system; Z86.73 Personal history of transient ischemic attack (TIA), and cerebral infarction without residual deficits; I25.2 Old myocardial infarction; Z87.11 Personal history of peptic ulcer disease
CPT/HCPCS: 10797

== ENCOUNTER 2018-03-14 20:42 | Emergency (ER) | payer BC, OTHER ==
[~2018-03-14] VITALS: Ht 190.5 cm; Wt 98.9 kg
--- NOTE | ~2018-03-14 | EKG ---
[place] [address] [facility] [place] [address] ELECTROCARDIOGRAM REPORT Name: MAITE JIANG Room #: [facility]#: [id number] Admission: 03/14/18 Attend Phys: Discharge: 03/15/18 Date of : 56 Report #: [id number] THIS REPORT FOR: //name// [facility] ED Test Date: 2018-03-14 Test Time: 20:56:47 Pat Name: MAITE JIANG Department: Room: Gender: M Drill Press Operator Numerical Control: VERNASAPNA : 1960 Requested By: Omega Blanco Order Number: [id number] MD: Satya Boyd Measurements Intervals [place] Rate: 78 P: 46 [place]: 132 QRS: -77 QRSD: 160 T: 98 QT: 472 QTc: 538 Interpretive Statements Atrial-sensed ventricular-paced complexes No further analysis attempted due to paced rhythm Compared to ECG 06/28/2017 11:42:10 AV dual-paced complex(es) or rhythm no longer present Electronically Signed On 03-15-2018 8:41:24 CDT by Satya Boyd [email or web address] <ELECTRONICALLY SIGNED> By: Satya Boyd MD 03/15/18 0841 55 55 Satya Boyd MD /EPI
[~2018-03-14 20:42] MED LIST changes: +COZAAR 25 MG TA25 M1 PO; +DEMADEX20 MG PO; +ELIQUIS5 MG PO; +POTASSIUM20 PO; +PROTONIX40 M1 PO
[2018-03-14] MEDS ORDERED: XARELTO15 MG PO (21:37)
[2018-03-14] MEDS ORDERED: EDARBI80 MG PO (21:39)
[2018-03-14 22:05] LABS: ABSOLUTE NEUTROPHILS 2.1 thou/uL (1.4-8.2); BASOPHILS 1.2 % (0.0-2.0); EOSINOPHILS 5.2 % (0.0-3.0); HEMATOCRIT 44.9 % (42.0-52.0); HEMOGLOBIN 15.3 gm/dL (14.0-18.0); MCH 28.7 pg (26.0-34.0); MCHC 34.2 g/dL (28.0-37.0); MCV 84.1 fL (80.0-100.0); MONOCYTES 9.9 % (1.0-8.0); PLATELET COUNT 136 thou/uL (150-400); POLYS 40.7 % (36.0-66.0); RBC 5.34 mil/uL (4.50-6.00); RDW 16.2 % (10.5-14.5); WBC 5.2 thou/uL (4.0-11.0)
[2018-03-14 22:13] LABS: ANION GAP 9 mmol/L (7-16); BUN 32 mg/dL (7-18); CHLORIDE 103 mmol/L (98-107); CO2 26 mmol/L (21-32); CREATININE 2.8 mg/dL (0.7-1.3); GLUCOSE 100 mg/dL (74-106); POTASSIUM 4.9 mmol/L (3.5-5.1); SODIUM 138 mmol/L (136-145)
[2018-03-14 22:21] LABS: ALBUMIN 3.8 g/dL (3.4-5.0); MAGNESIUM 1.9 mg/dL (1.8-2.4); SGOT 41 U/L (15-37); SGPT 26 U/L (30-65); TOTAL BILIRUBIN 1.5 mg/dL (<0.1-1.0); TOTAL PROTEIN 9.1 g/dL (6.4-8.2); TROPONIN-I <0.06 ng/mL (<0.06)
== END 2018-03-15 00:10 | disposition home or self-care (01) ==
LOC: ER 20:42
PROVIDERS: Emergency Medicine
DX: I11.0 Hypertensive heart disease with heart failure (principal); H93.19 Tinnitus, unspecified ear; I50.9 Heart failure, unspecified; Z86.718 Personal history of other venous thrombosis and embolism; Z86.73 Personal history of transient ischemic attack (TIA), and cerebral infarction without residual deficits

== ENCOUNTER 2019-07-01 14:47 | Emergency (ER) | payer BC, OTHER ==
[~2019-07-01] VITALS: Ht 170.2 cm; Wt 108.9 kg
[~2019-07-01 14:47] MED LIST changes: +EDARBI80 MG PO; +XARELTO15 MG PO
[2019-07-01 17:39] LABS: ABSOLUTE NEUTROPHILS 2.9 thou/uL (1.4-8.2); EOSINOPHILS 5.3 % (0.0-3.0); HEMATOCRIT 43.4 % (42.0-52.0); HEMOGLOBIN 14.3 gm/dL (14.0-18.0); MCH 27.8 pg (26.0-34.0); PLATELET COUNT 111 thou/uL (150-400); POLYS 60.7 % (36.0-66.0); RBC 5.17 mil/uL (4.50-6.00); RDW 15.7 % (10.5-14.5); WBC 4.7 thou/uL (4.0-11.0)
[2019-07-01 17:46] LABS: CALCIUM 8.9 mg/dL (8.5-10.1); POTASSIUM 3.4 mmol/L (3.5-5.1)
[2019-07-01 17:52] LABS: TOTAL BILIRUBIN 0.8 mg/dL (<0.1-1.0); TOTAL PROTEIN 9.2 g/dL (6.4-8.2)
[2019-07-01 19:34] VITALS: BP 193/121
== END 2019-07-01 19:30 | disposition home or self-care (01) ==
LOC: EDBD 14:47 → ER 14:47
PROVIDERS: Emergency Medicine
DX: R10.84 Generalized abdominal pain (principal)

== ENCOUNTER → 2020-03-06 | Outpatient (CLI) | payer BC, OTHER | LOC: SJCVCIMAG 07:14 | PROVIDERS: ATTEND Internal Medicine Cardiovascular Disease | DX: I08.1 Rheumatic disorders of both mitral and tricuspid valves (principal); I42.9 Cardiomyopathy, unspecified; R94.31 Abnormal electrocardiogram [ECG] [EKG]; Z95.0 Presence of cardiac pacemaker ==

== ENCOUNTER 2020-05-15 07:46 | Emergency (ER) | payer BC, OTHER ==
[~2020-05-15] VITALS: Ht 190.5 cm; Wt 95.3 kg
[2020-05-15] MEDS ORDERED: PROTONIX40 M2 PO (08:50)
[2020-05-15] MEDS ORDERED: XARELTO20 MG PO (08:51)
[2020-05-15] MEDS ORDERED: AMLODIPINE BESY10 MG PO (08:52)
[2020-05-15 09:31] LABS: ABSOLUTE NEUTROPHILS 4.7 thou/uL (1.4-8.2); BASOPHILS 0.5 % (0.0-2.0); HEMATOCRIT 43.5 % (42.0-52.0); HEMOGLOBIN 14.2 gm/dL (14.0-18.0); LYMPHOCYTES 9.3 % (24.0-44.0); MCH 26.9 pg (26.0-34.0); MCHC 32.6 g/dL (28.0-37.0); MCV 82.6 fL (80.0-100.0); POLYS 81.2 % (36.0-66.0); RBC 5.27 mil/uL (4.50-6.00); RDW 16.3 % (10.5-14.5); WBC 5.8 thou/uL (4.0-11.0)
[2020-05-15 10:17] LABS: ANION GAP 10 mmol/L (7-16); BUN 19 mg/dL (7-18); CALCIUM 7.8 mg/dL (8.5-10.1); CHLORIDE 107 mmol/L (98-107); CO2 24 mmol/L (21-32); CREATININE 1.8 mg/dL (0.7-1.3); GLUCOSE 113 mg/dL (74-106); POTASSIUM 3.3 mmol/L (3.5-5.1); SODIUM 141 mmol/L (136-145)
[2020-05-15 10:27] LABS: ALBUMIN 2.9 g/dL (3.4-5.0); LIPASE 120 U/L (73-393); SGOT 32 U/L (15-37); SGPT 34 U/L (30-65); TROPONIN-I <0.06 ng/mL (<0.06)
[2020-05-15 10:59] LABS: PLATELET COUNT 131 thou/uL (150-400)
[2020-05-15 12:59] VITALS: BP 159/98
--- NOTE | 2020-05-16 11:16 | EKG ---
[place] [address] [facility] [place] [address] ELECTROCARDIOGRAM REPORT Name: ALYSSASHYANNMAITE O Room #: DEP [facility]#: [id number] Admission: 05/15/20 Attend Phys: Discharge: 05/15/20 Date of : 56 Report #: [id number] [facility] ED Test Date: 2020-05-15 Test Time: 08:55:07 Pat Name: MAITE JIANG Department: Room: Gender: M Document Imaging Manager: carrol : 1960 Requested By: Austin Chaney Order Number: [id number] MD: Robert Figueroa Measurements Intervals [place] Rate: 80 P: 39 MD: 138 QRS: -76 QRSD: 168 T: 94 QT: 470 QTc: 543 Interpretive Statements Atrial-sensed ventricular-paced rhythm No further analysis attempted due to paced rhythm Compared to ECG 03/14/2018 20:56:47 No significant changes Electronically Signed On 05-16-2020 11:16:21 MAGNETO ELECTRICIAN by Robert Figueroa [email or web address] <ELECTRONICALLY SIGNED> By: Robert Figueroa MD, [facility] 05/16/20 1116 0855 0855 Robert Figueroa MD, [facility] /EPI
== END 2020-05-15 13:00 | disposition home or self-care (01) ==
LOC: ER 07:46
PROVIDERS: Emergency Medicine
DX: R10.9 Unspecified abdominal pain (principal); R11.2 Nausea with vomiting, unspecified; R35.0 Frequency of micturition; Z79.899 Other long term (current) drug therapy; Z79.82 Long term (current) use of aspirin; Z20.828 Contact with and (suspected) exposure to other viral communicable diseases